=== PATIENT | male | born 1945 | race Hispanic/Latino ===

== ENCOUNTER 2020-11-01 15:32 | Emergency (ER) | payer MEDICARE ==
[~2020-11-01] VITALS: Ht 165.1 cm; Wt 95.3 kg
[~2020-11-01 15:32] MED LIST: COMBIGAN; FEROSUL325 MG PO; FUROSEMIDE20 MG PO; HYDRALAZINE HCL25 MG PO; LABETALOL HCL300 MG PO; LANTUS SOL300 UNIT/3 SQ; LATANOPROST2.5 ML OP; NIFEDIPINE ER60 MG PO; POTASSIUM CHLOR8 MEQ PO; PRAVASTATIN SOD40 MG PO; Z.0.AMLODIPINE BESYL PO; Z.0.CLONIDINE HCL0.2 PO; Z.0.GLIPIZIDE ER10 M PO; Z.0.HYDROCHLOROTHIA2 PO; Z.0.LISINOPRIL40 MG PO; Z.0.LOVASTATIN40 MG PO; Z.0.METOPROLOL TART5 PO; Z.0.TRILIPIX135 MG PO; Z.2.METFORMIN HCL500 PO; [UNRECOGNIZED DRUG - OTHER]
[2020-11-01 16:27] LABS: BASOPHILS % 0.2 % (0.0-1.0); HEMATOCRIT 36.3 % (38.2-49.6); HEMOGLOBIN 12.1 g/dL (14.0-18.0); LYMPHOCYTES % 22.2 % (18.0-39.1); MEAN CORPUSCULAR HEMOGLOBIN 28.2 pg (28-32); MEAN CORPUSCULAR HGB CONC 33.3 g/dL (31-35); MEAN CORPUSCULAR VOLUME 84.6 fL (81-99); MONOCYTES # (AUTO) 0.4 (0.2-0.8); MONOCYTES % 7.6 % (4.4-11.3); NEUTROPHILS # (AUTO) 3.2 (2.1-6.9); NEUTROPHILS % 69.6 % (38.7-80.0); PLATELET COUNT 136 x10e3/uL (140-360); RED BLOOD COUNT 4.29 x10e6/uL (4.3-5.7)
[2020-11-01 16:39] LABS: INR 0.88; PROTHROMBIN TIME 12.4 seconds (11.9-14.5)
[2020-11-01 16:40] LABS: PARTIAL THROMBOPLASTIN TIME 42.7 seconds (23.8-35.5)
[2020-11-01 16:47] LABS: ALBUMIN 3.1 g/dL (3.5-5.0); ALBUMIN/GLOBULIN RATIO 0.8 (0.8-2.0); ANION GAP 17.9 mmol/L (8-16); CALCIUM 8.9 mg/dL (8.4-10.2); CREATININE, SERUM 2.69 mg/dL (0.72-1.25); MAGNESIUM 2.2 MG/DL (1.3-2.1); POTASSIUM 3.9 mmol/L (3.5-5.1)
[2020-11-01 16:53] LABS: CREATINE KINASE MB 0.4 ng/mL (0-5.0)
[2020-11-01 17:20] LABS: CLARITY,URINE SL CLOUDY (CLEAR); COLOR,URINE YELLOW (YELLOW); KETONES,URINE NEGATIVE (NEGATIVE); LEUKOCYTE ESTERASE ,URINE NEGATIVE (NEGATIVE); NITRITE,URINE NEGATIVE (NEGATIVE); PROTEIN,URINE DIPSTICK 2+ (NEGATIVE); URINE UROBILINOGEN 0.2 mg/dL (0.2 - 1)
[2020-11-01 17:43] LABS: AMORPHOUS SEDIMENT,URINE FEW (FEW); BACTERIA,URINE FEW /HPF; RBC,URINE 0-5 /HPF (0-5); WBC,URINE (MAN) 0-5 /HPF (0-5)
[2020-11-01] MEDS ORDERED: SODIUM CHLORIDE 0.9% 1000ML 1,000 ML IV STA (18:23)
[2020-11-01] MEDS ORDERED: ACETAMINOPHEN 325 MG TAB PO ONE (18:45)
[2020-11-01] MEDS ORDERED: DEXAMETHASONE SOD PHOS 10 MG/1 ML VIAL IV SCH (19:30)
[2020-11-01 23:21] LABS: ANION GAP 16.9 mmol/L (8-16); CALCIUM 8.5 mg/dL (8.4-10.2); CREATININE, SERUM 2.78 mg/dL (0.72-1.25); POTASSIUM 3.9 mmol/L (3.5-5.1)
[2020-11-01 23:30] VITALS: BP 108/56
== END 2020-11-02 00:40 | disposition other institution (70) ==
LOC: ER 16:11
DX: U07.1 COVID-19 (principal); R41.82 Altered mental status, unspecified; F03.90 Unspecified dementia, unspecified severity, without behavioral disturbance, psychotic disturbance, mood disturbance, and anxiety; N28.9 Disorder of kidney and ureter, unspecified; E86.0 Dehydration
CPT/HCPCS: 36415; 70450; 71045; 80048; 80053; 81001; 82550; 82553; 82948; 83735; 83880; 84484; 85025; 85610; 85730; 87040; 87086; 93005; 99285; J1100; J7030; U0002

== ENCOUNTER 2021-02-01 23:03 | Emergency (ER) | payer MEDICARE ==
[~2021-02-01] VITALS: Ht 165.1 cm; Wt 95.3 kg
[2021-02-01] MEDS ORDERED: DIATRIZOATE MEGL/DIATRIZOA SOD 30 ML BTL PO ONE (23:55)
== END 2021-02-02 01:30 | disposition home or self-care (01) ==
LOC: ER 23:19
DX: Z43.1 Encounter for attention to gastrostomy (principal); F03.90 Unspecified dementia, unspecified severity, without behavioral disturbance, psychotic disturbance, mood disturbance, and anxiety; I10 Essential (primary) hypertension; E11.9 Type 2 diabetes mellitus without complications; E78.5 Hyperlipidemia, unspecified
CPT/HCPCS: 74018; 99282

== ENCOUNTER 2021-02-02 08:30 | Emergency (ER) | payer MEDICARE ==
[~2021-02-02] VITALS: Ht 165.1 cm; Wt 95.3 kg
== END 2021-02-02 08:55 | disposition home or self-care (01) ==
LOC: ER 08:54
DX: Z43.1 Encounter for attention to gastrostomy (principal); F03.90 Unspecified dementia, unspecified severity, without behavioral disturbance, psychotic disturbance, mood disturbance, and anxiety; I10 Essential (primary) hypertension; E11.9 Type 2 diabetes mellitus without complications; E78.5 Hyperlipidemia, unspecified
CPT/HCPCS: 99282